=== PATIENT | female | born 1995 | race Caucasian/White ===

== ENCOUNTER 2023-09-19 09:35 | Outpatient (CLI) | payer OTHER, SELFPAY | END 2023-09-19 09:36 | disposition home or self-care (01) | PROVIDERS: PCP Family Medicine; Visit Provider Family Medicine | DX: M25.50 Pain in unspecified joint (principal) | CPT/HCPCS: 85651; 86039; 86140; 86431 ==

== ENCOUNTER 2023-10-03 08:07 | Outpatient (CLI) | payer OTHER, SELFPAY ==
--- NOTE | 2023-10-03 09:00 | CRLHL7_ITS ---
For Patients: As a result of the Century Cures Act, medical imaging exams and procedure reports are released immediately into your electronic medical record. You may view this report before your referring provider. If you have questions, please contact your health care provider. Indication: FATIGUE, ADENOPATHY, Nausea, BODY ACHES, HAIR LOSS. SYMPTOMS ON AND OFF AND CHANGING OVER 1 YEAR Technique: CT Chest/Abd/Pelvis 75CC ISOVUE 370 AND WATER PREP Please note that all CT scans at this facility use dose modulation, iterative reconstruction, and/or weight-based dosing when appropriate to reduce radiation dose to as low as reasonably achievable. Comparison: None Findings: In the chest, the lungs are clear. No infiltrate or edema. No effusion or pneumothorax. Breast tissue appears normal. No adenopathy. Osseous structures normal. In the abdomen, the liver is normal with incidental fat deposition adjacent to the falciform ligament. Possible small gallstones. Coarse calcification noted within the uncinate process of the pancreas. Left adrenal gland normal. Normal spleen. Kidneys normal. Coarse calcifications associated with the right adrenal gland. No bowel obstruction. No adenopathy. In the pelvis, normal bladder and uterus. Incidental cyst left ovary. Unremarkable right ovary. No excess pelvic free fluid. No free air. No adenopathy or hernia. No abscess. The appendix is normal. No fracture. Impression: Dystrophic coarse calcifications associated with the right adrenal gland. Calcification within the uncinate process of the pancreas. Possible cholelithiasis. Please note that all CT scans at this facility use dose modulation, iterative reconstruction, and/or weight-based dosing when appropriate to reduce radiation dose to as low as reasonably achievable. Dictated by Iván Roldan MD @ 10/03/2023 1:02:39 PM (Electronically Signed)
== END 2023-10-03 08:08 | disposition home or self-care (01) ==
PROVIDERS: PCP Family Medicine; Visit Provider Family Medicine
DX: R53.83 Other fatigue (principal); E27.9 Disorder of adrenal gland, unspecified; R59.1 Generalized enlarged lymph nodes
CPT/HCPCS: 71260; 74177; Q9967